=== PATIENT | female | born 2000 | race Caucasian/White ===

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

== ENCOUNTER 2023-09-14 23:43 | Emergency (ER) | payer BC | END 2023-09-15 00:06 | disposition left against medical advice (07) | LOC: ER 23:46 | DX: R52 Pain, unspecified (principal); Z53.21 Procedure and treatment not carried out due to patient leaving prior to being seen by health care provider ==